=== PATIENT | female | born 1995 | race Caucasian/White ===

== ENCOUNTER 2017-11-11 19:39 | Emergency (ER) | payer SELFPAY ==
[~2017-11-11] VITALS: Ht 165.1 cm; Wt 69.0 kg
[2017-11-11 20:47] VITALS: BP 149/80; PULSE 108; RESP 18; TEMP 98.4; O2SAT 99
[2017-11-11 22:10] LABS: BACTERIA, URINE MOD /hpf; BILIRUBIN, URINE NEG (NEG); BLOOD, URINE LARGE (NEG); GLUCOSE,URINE NEG (NEG); KETONE, URINE NEG (NEG); MUCUS URINE MANY /lpf (OCC); NITRITE,URINE NEG (NEG); SQUAMOUS EPITHELIAL CELL URINE 4 /hpf (0-5); URINE COLOR YELLOW (YELLW/STRAW); URINE LEUKOCYTE ESTERASE NEG (NEG)
--- NOTE | 2017-11-11 23:22 | RADRPT ---
EXAM DATE/TIME: 11/11/2017 22:35 [place] COMPARISON: No previous studies available for comparison. INDICATIONS : Pelvic pain. MEDICAL HISTORY : . Ovarian cysts. SURGICAL HISTORY : section. Left ovarian cyst removal x 4. ENCOUNTER: Initial ACUITY: 1 day PAIN SCORE: 5/10 LOCATION: Bilateral pelvis MEASUREMENTS: UTERUS: 8.6 x 5.2 x 3.8 cm ENDOMETRIAL STRIPE: 3 mm RIGHT OVARY: 3.7 x 2.5 x 1.8 cm LEFT OVARY: 3.2 x 2.5 x 2.2 cm FINDINGS: UTERUS: The myometrium has homogeneous echotexture without mass. RIGHT OVARY: Ovary contains no mass or significant cystic lesion. LEFT OVARY: Ovary contains no mass or significant cystic lesion. MISCELLANEOUS: No free fluid. CONCLUSION: Uterus and ovaries are unremarkable. No intrauterine gestational sac identified. May be too small to visualize. Piyush Lewis MD on November 11, 2017 at 23:17 Board Certified Radiologist. This report was verified electronically.
--- NOTE | 2017-11-12 00:08 | PD ---
HPI Chief Complaint: Complaint Time Seen by Provider: 21:08 Travel History International Travel<30 days: No Contact w/Intl Traveler<30days: No Traveled to known affect area: No History of Present Illness HPI Patient is a 22-year-old female coming in with left lower quadrant pain for 4 days duration it is progressively getting worse. Now she says she is having dysuria and she saw some hematuria as well as having nausea and vomiting. She has had a history of having cyst removals laparoscopically 4. 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 Is complaining of focal left lower quadrant tenderness dysuria hematuria and nausea and vomiting associated symptoms the pain is 4 out of 10 localized no radiation associated with vomiting nausea. She did not take anything to alleviate the symptoms PFSH Past Medical History Immunizations Current: Yes Tetanus Vaccination: Unknown Influenza Vaccination: No ?: Unknown Social History Alcohol Use: No Tobacco Use: Yes Substance Use: No Allergies-Medications (Allergen,Severity, Reaction): Coded Allergies: No Known Allergies (Unverified , 11/11/17) Reported Meds & Prescriptions Reported Meds & Active Scripts Active Cipro (Ciprofloxacin HCl) 500 Mg Tab 500 Mg PO BID Physical Exam Narrative GENERAL: Nontoxic appearing awake alert SKIN: Warm and dry. HEAD: Atraumatic. Normocephalic. EYES: Pupils equal and round. No scleral icterus. No injection or drainage. ENT: No nasal bleeding or discharge. Mucous membranes pink and moist. NECK: Trachea midline. No JVD. CARDIOVASCULAR: Regular rate and rhythm. RESPIRATORY: No accessory muscle use. Clear to auscultation. Breath sounds equal bilaterally. GASTROINTESTINAL: Abdomen focal tenderness suprapubically as well as left lower quadrant soft nondistended. Hepatic and splenic margins not palpable. MUSCULOSKELETAL: Extremities without clubbing, cyanosis, or edema. No obvious deformities. NEUROLOGICAL: Awake and alert. No obvious cranial nerve deficits. Motor grossly within normal limits. Five out of 5 muscle strength in the arms and legs. Normal speech. PSYCHIATRIC: Appropriate mood and affect; insight and judgment normal. Data Data Last Documented VS Vital Signs Date Time Temp Pulse Resp B/P (MAP) Pulse Ox O2 Delivery O2 Flow Rate FiO2 11/12/17 00:35 89 16 132/74 (93) 98 11/11/17 20:47 98.4 Orders Orders Us Pelvis Comp W Doppler (11/11/17 ) Urinalysis - C+S If Indicated (11/11/17 21:34) Ed Urine Pregnancytest Poc (11/11/17 21:34) Urine Culture (11/11/17 21:52) Ciprofloxacin (Cipro) (11/12/17 00:15) Ed Discharge Order (11/12/17 00:18) Labs Laboratory Tests Test 11/11/17 21:52 Urine Color YELLOW Urine Turbidity HAZY Urine pH 6.0 Urine Specific [place] 1.035 Urine Protein 30 mg/dL Urine Glucose (UA) NEG mg/dL Urine Ketones NEG mg/dL Urine Occult Blood LARGE Urine Nitrite NEG Urine Bilirubin NEG Urine Urobilinogen 2.0 MG/DL Urine Leukocyte Esterase NEG Urine RBC 96 /hpf Urine WBC 2 /hpf Urine Squamous Epithelial Cells 4 /hpf Urine Bacteria MOD /hpf Urine Mucus MANY /lpf Microscopic Urinalysis Comment CULTURE INDICATED MDM Medical Decision Making Medical Screen Exam Complete: Yes Emergency Medical Condition: Yes Differential Diagnosis ovarian cyst vs PID vs colitis vs menstrual pain cramps vs Gastroenteritis Narrative Course labs UA and US ovaries reaassuring D/C for outpt follow up UA MOD Bacteria elevation will empirically treat cipro for 5 days Diagnosis Primary Impression: Adnexal pain Patient Instructions: Abdominal Pain (ED), General Instructions Scripts Ciprofloxacin (Cipro) 500 Mg Tab 500 MG PO BID for Infection, #10 TAB 0 Refills Prov: Toño Knox MD 11/12/17 Disposition: 01 DISCHARGE HOME Condition: Toño Gurrola MD Nov 12, 2017 00:08
[2017-11-12] MEDS ORDERED: CIPROFLOXACIN 750 MG TAB PO ONE (00:15)
[2017-11-12] MEDS ORDERED: CIPR-9 PO (00:17)
[2017-11-12 00:35] VITALS: BP 132/74
== END 2017-11-12 00:37 | disposition home or self-care (01) ==
LOC: NEPE 19:39
DX: R10.2 Pelvic and perineal pain (principal); A49.8 Other bacterial infections of unspecified site
CPT/HCPCS: 76856; 81001; 84703; 87077; 87086; 87186; 93975